=== PATIENT | female | born 1980 | race Caucasian/White ===

== ENCOUNTER 2020-05-14 16:50 | Emergency (ER) | payer MEDICAID ==
[~2020-05-14 16:50] MED LIST: Magnevist 469MG/ML 20 ML VIAL ONE
[2020-05-14] MEDS ORDERED: Morphine 10 MG/ML VIAL ONE (18:39)
[2020-05-14] MEDS ORDERED: Dexamethasone 10 MG/ML VIAL ONE (18:39)
[2020-05-14] MEDS ORDERED: Morphine 4 MG/ML VIAL ONE (18:40)
[2020-05-14 18:46] LABS: #Basophils 0.1 thou/uL (0.0-0.2); #Eosinphils 0.2 thou/uL (0.0-0.7); #Lymphocytes 2.3 thou/uL (1.20-3.40); #Monocytes 0.5 thou/uL (0.11-0.59); #Neutrophils 4.8 thou/uL (1.40-6.50); %Basophils 0.9 % (0.0-1.0); %Eosinophils 2.7 % (0.0-10.0); %Lymphocytes 29.4 % (21.0-51.0); %Monocytes 6.1 % (0.0-10.0); %Neutrophils 60.8 % (42.0-75.0); Hemoglobin 12.8 g/dL (12.0-16.0); Mean Corpuscular HGB CONC 33.2 g/dL (32.0-36.0); Mean Corpuscular Hemoglobin 27.4 pg (27.0-31.0); Mean Corpuscular Volume 82.6 fL (78.0-98.0); Mean Platelet Volume 8.9 fL (7.4-10.4); Platelet Count 236 thou/uL (130-400); RBC Distribution Width 13.7 % (11.5-14.5); Red Blood Cell (RBC) Count 4.69 mill/uL (4.20-5.40); White Blood Cell (WBC) Count 7.9 thou/uL (4.8-10.8)
[2020-05-14 19:10] LABS: ALT (SGPT) 20 U/L (8-55); AST (SGOT) 13 U/L (5-34); Alkaline Phosphatase 85 U/L (40-110); Anion Gap 11 mmol/L (10-20); BUN (Urea Nitrogen) 15 mg/dL (7.0-18.7); Bilirubin, Total 0.5 mg/dL (0.2-1.2); CK (CPK) 65 U/L (29-168); Calc. Creatinine Clearance 0 mL/min (70-130); Calcium 9.1 mg/dL (7.8-10.44); Carbon Dioxide 27 mmol/L (22-29); Chloride 103 mmol/L (98-107); Estimated GFR-MDRD 66; Glucose 237 mg/dL (70-105); Potassium 3.9 mmol/L (3.5-5.1); Sodium 137 mmol/L (136-145)
--- NOTE | 2020-05-14 22:09 | MRI ---
MRI OF CERVICAL SPINE PERFORMED WITH AND WITHOUT CONTRAST ENHANCEMENT: 05/14/20 HISTORY: Evaluation for epidural abscess. Patient has numbness in bilateral hands. Worse on the right. The vertebral bodies are normal in height. Disc spaces all appear fairly well preserved. Cord signal change is noted. No areas of abnormal contrast enhancement. No epidural or abscess collection. C2-3: Unremarkable. C3-4: Somewhat overall congenitally narrowed canal. No foraminal narrowing at this level. C4-5: Once again there is a mild degree of stenosis related more to a somewhat congenitally narrowed appearing canal. No foraminal stenosis. C5-6: Canal shows a mild to moderate degree of stenosis at this level. No significant foraminal narro wing. C6-7: Again there is some mild canal stenosis at this level. In addition, there is some borderline le ft sided foraminal narrowing. C7-T1: No significant canal or foraminal narrowing. IMPRESSION: Somewhat congenitally narrowed appearing canal. No epidural abscess collection. No areas of abnormal enhancement. Some minimal enhancement along the posterior annulus fibers of the C4-5 disc level. This is probably related to a subtle annular disc tear. No signs that would suggest discitis. POS: OFF
== END 2020-05-14 21:30 | disposition home or self-care (01) ==
LOC: ERS 16:50
DX: M48.02 Spinal stenosis, cervical region (principal); M54.12 Radiculopathy, cervical region; E11.9 Type 2 diabetes mellitus without complications; I10 Essential (primary) hypertension; E78.00 Pure hypercholesterolemia, unspecified; F32.9 Major depressive disorder, single episode, unspecified; F41.9 Anxiety disorder, unspecified; F17.210 Nicotine dependence, cigarettes, uncomplicated; Z79.899 Other long term (current) drug therapy; Z79.84 Long term (current) use of oral hypoglycemic drugs
CPT/HCPCS: 36416; 72156; 80053; 82550; 85025; 85652; 86140; 96374; 96375; A9579; J1100; J2270

== ENCOUNTER 2020-10-09 14:59 | Emergency (ER) | payer MEDICAID ==
[2020-10-09] MEDS ORDERED: Ketorolac Tromethamine 30 MG/ML VIAL ONE (16:05)
== END 2020-10-09 17:13 | disposition home or self-care (01) ==
LOC: ERS 14:59
DX: M54.12 Radiculopathy, cervical region (principal); M25.511 Pain in right shoulder; E11.9 Type 2 diabetes mellitus without complications; I10 Essential (primary) hypertension; E78.00 Pure hypercholesterolemia, unspecified; F17.210 Nicotine dependence, cigarettes, uncomplicated; Z79.4 Long term (current) use of insulin; Z79.899 Other long term (current) drug therapy
CPT/HCPCS: 96372; 99283; J1885

== ENCOUNTER 2021-04-22 15:48 | Emergency (ER) | payer OTHER ==
[2021-04-22 16:12] LABS: #Eosinphils 0.2 thou/uL (0.0-0.7); #Lymphocytes 2.4 thou/uL (1.20-3.40); #Monocytes 0.5 thou/uL (0.11-0.59); #Neutrophils 5.3 thou/uL (1.40-6.50); %Basophils 0.4 % (0.0-1.0); %Eosinophils 2.7 % (0.0-10.0); %Lymphocytes 28.4 % (21.0-51.0); %Monocytes 5.8 % (0.0-10.0); %Neutrophils 62.7 % (42.0-75.0); Hemoglobin 12.8 g/dL (12.0-16.0); Mean Corpuscular HGB CONC 33.7 g/dL (32.0-36.0); Mean Corpuscular Hemoglobin 29.3 pg (27.0-31.0); Mean Platelet Volume 8.5 fL (7.4-10.4); Platelet Count 232 thou/uL (130-400); RBC Distribution Width 13.4 % (11.5-14.5); Red Blood Cell (RBC) Count 4.36 mill/uL (4.20-5.40); White Blood Cell (WBC) Count 8.5 thou/uL (4.8-10.8)
[2021-04-22 16:35] LABS: ALT (SGPT) 14 U/L (8-55); AST (SGOT) 15 U/L (5-34); Alkaline Phosphatase 57 U/L (40-110); Anion Gap 12 mmol/L (10-20); BUN (Urea Nitrogen) 13 mg/dL (7.0-18.7); Bilirubin, Total 0.5 mg/dL (0.2-1.2); Calc. Creatinine Clearance 0 mL/min (70-130); Calcium 9.4 mg/dL (7.8-10.44); Carbon Dioxide 27 mmol/L (22-29); Chloride 106 mmol/L (98-107); Globulin 2.7 g/dL (2.4-3.5); Glucose 81 mg/dL (70-105); Potassium 4.5 mmol/L (3.5-5.1); Protein, Total 6.7 g/dL (6.0-8.3); Sodium 140 mmol/L (136-145)
[2021-04-22] MEDS ORDERED: Ketorolac Tromethamine 30 MG/ML VIAL ONE (16:49)
[2021-04-22] MEDS ORDERED: Ondansetron PF 4 MG/2 ML Vial ONE (16:49)
[2021-04-22] MEDS ORDERED: Acetaminophen 500 MG TAB ONE (16:49)
[2021-04-22 17:10] LABS: BHCG - Serum Negative (NEGATIVE); Pregs Control Background? CLEAR/WHITE (CLR/WHITE); Pregs Control Bar Appear? YES (CONTROL BAR)
[2021-04-22 17:20] LABS: Thyroid Stimulating Hormone 0.9899 uIU/mL (0.35-4.94)
[2021-04-22] MEDS ORDERED: HYDROcodone/Acetaminophen 5/325 mg Tablet ONE (18:19)
== END 2021-04-22 18:49 | disposition home or self-care (01) ==
LOC: ERS 15:48
DX: R55 Syncope and collapse (principal); M79.7 Fibromyalgia; R00.1 Bradycardia, unspecified; R25.2 Cramp and spasm; I10 Essential (primary) hypertension; E11.9 Type 2 diabetes mellitus without complications; E78.00 Pure hypercholesterolemia, unspecified; F17.210 Nicotine dependence, cigarettes, uncomplicated
CPT/HCPCS: 36415; 80053; 84443; 84703; 85025; 93005; 96374; 96375; J1885; J2405

== ENCOUNTER 2021-06-09 07:25 | Outpatient (CLI) | payer OTHER | END 2021-06-09 07:26 | disposition home or self-care (01) | LOC: BICMRI 07:25 | PROVIDERS: ATTEND Family Medicine | DX: M51.16 Intervertebral disc disorders with radiculopathy, lumbar region (principal); G89.4 Chronic pain syndrome; M46.1 Sacroiliitis, not elsewhere classified; M47.26 Other spondylosis with radiculopathy, lumbar region | CPT/HCPCS: 72148 ==

== ENCOUNTER 2023-07-05 15:39 | Outpatient (CLI) | payer BC | END 2023-07-05 15:40 | disposition home or self-care (01) | LOC: BICRAD 15:39 | PROVIDERS: ATTEND Internal Medicine Rheumatology | DX: R76.11 Nonspecific reaction to tuberculin skin test without active tuberculosis (principal) | CPT/HCPCS: 71046 ==